=== PATIENT | male | born 2000 | race African-American/Black ===

== ENCOUNTER 2018-07-03 19:28 | Emergency (ER) | payer OTHER ==
[2018-07-03] MEDS ORDERED: CYCLOBENZAPRINE HCL 10 MG TABLET PO ONE (20:51)
[2018-07-03] MEDS ORDERED: IBUPROFEN 800 MG TABLET PO ONE (20:51)
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
[2018-07-03 21:15] VITALS: BP 142/65
== END 2018-07-03 21:03 | disposition home or self-care (01) ==
LOC: ER 19:28
DX: S16.1XXA Strain of muscle, fascia and tendon at neck level, initial encounter (principal); R51 Headache; V49.40XA Driver injured in collision with unspecified motor vehicles in traffic accident, initial encounter
CPT/HCPCS: 99283